=== PATIENT | female | born 1955 ===

== ENCOUNTER 2024-06-04 13:26 | Emergency (ER) | payer MEDICARE, MEDICAID, SELFPAY ==
--- NOTE | ~2024-06-04 | XR_ITS ---
EXAMINATION: XR FOOT 1-2 VIEWS LEFT, XR ANKLE 3 OR MORE VIEWS LEFT HISTORY: fall COMPARISON: There are no prior studies available for comparison. FINDINGS: Six views of the left foot and ankle are submitted. Osseous mineralization is normal. There is no fracture or dislocation. The joint spaces are preserved. There is a moderate plantar calcaneal spur. The soft tissues are unremarkable. XR/XR ankle LT min 3V IMPRESSION: No evidence of fracture of the left foot or ankle. Electronically signed by: Gilson French MD 06/04/2024 03:11 PM [facility]
--- NOTE | ~2024-06-04 | XR_ITS ---
EXAMINATION: XR TIBIA AND FIBULA, RIGHT CLINICAL INFORMATION: fall , pain COMPARISON: None available. TECHNIQUE: AP and lateral views of the right tibia and fibula were obtained. FINDINGS: The bones and soft tissues are normal. No fracture. No osseous lesions. XR/XR tibia fibula RT 2V IMPRESSION: Normal right tibia and fibula. Electronically signed by: Roberto Gandara MD 06/04/2024 03:11 PM [facility]
--- NOTE | ~2024-06-04 | XR_ITS ---
EXAMINATION: XR FOOT 1-2 VIEWS LEFT, XR ANKLE 3 OR MORE VIEWS LEFT HISTORY: fall COMPARISON: There are no prior studies available for comparison. FINDINGS: Six views of the left foot and ankle are submitted. Osseous mineralization is normal. There is no fracture or dislocation. The joint spaces are preserved. There is a moderate plantar calcaneal spur. The soft tissues are unremarkable. XR/XR foot LT 2V IMPRESSION: No evidence of fracture of the left foot or ankle. Electronically signed by: Gilson French MD 06/04/2024 03:11 PM [facility]
--- NOTE | ~2024-06-04 | XR_ITS ---
EXAMINATION: XR TIBIA AND FIBULA, LEFT CLINICAL INFORMATION: Fall, pain COMPARISON: None available. TECHNIQUE: AP and lateral views of the left tibia and fibula were obtained. FINDINGS: The bones and soft tissues are normal. No fracture. No osseous lesions. XR/XR tibia fibula LT 2V IMPRESSION: Normal left tibia and fibula. Electronically signed by: Roberto Gandara MD 06/04/2024 03:10 PM [facility]
--- NOTE | ~2024-06-04 | XR_ITS ---
EXAMINATION: XR FOOT, RIGHT CLINICAL INFORMATION: fall COMPARISON: None available. TECHNIQUE: AP, lateral, and oblique views of the right foot. FINDINGS: No fracture, dislocation, or suspicious bone lesion. No malalignment. Normal plantar arch. Mild dorsal tarsometatarsal spurring. Moderate size plantar and small dorsal calcaneal spurs. No soft tissue abnormality. XR/XR foot RT 2V IMPRESSION: No acute bony abnormalities right foot. Electronically signed by: Roberto Gandara MD 06/04/2024 03:12 PM [facility]
--- NOTE | ~2024-06-04 | XR_ITS ---
EXAMINATION: XR ANKLE, RIGHT CLINICAL INFORMATION: fall COMPARISON: None available. TECHNIQUE: AP, lateral, and mortise views of the right ankle. FINDINGS: No fracture. Alignment is anatomic. No erosions. Mortise is maintained. The talar dome is normal. Subtalar joints appear normal. There are small dorsal and moderate size plantar calcaneal spurs. Soft tissues are normal. XR/XR ankle RT 2V IMPRESSION: Normal right ankle. Electronically signed by: Roberto Gandara MD 06/04/2024 03:09 PM [facility]
[2024-06-04 13:29] VITALS: BP 202/96; PULSE 92; O2SAT 95
[2024-06-04 14:20] VITALS: BP 176/81; PULSE 82; RESP 18; TEMP 36.3; O2SAT 95; BMI 41.0
--- NOTE | 2024-06-04 14:29 | ED_ITS ---
HPI - General Adult General Chief complaint: Fall Stated complaint: escalator fall at mall, no LOC, no HS, GCS 15 History of Present Illness HPI narrative: Patient left before completion of treatment by ED provider Related Data Allergies Allergy/AdvReac Type Severity Reaction Status Date / Time Penicillins Allergy Anaphylaxis Verified 06/04/24 14:27 [facility] Social History Social History Advance Directives: No Advance Directives Information Provided: No Physical Exam ED Vital Signs: Vital Signs - 24 hr 06/04/24 19:49 Temperature 97.3 F Pulse Rate 76 Respiratory Rate 16 Blood Pressure 189/88 H Pulse Oximetry 96 Oxygen Delivery Method Room Air BMI result Body Mass Index 41.0 Course Course Course Narrative: RME: 69 yold male presents to the ED for falling. Patient states she was on an escalator and she slipped in fell onto both lower extremities. Patient denies hitting head or loss of consciousness. Patient denies being on any blood thinners. Discharge Plan Discharge Clinical Impression: Fall Patient Disposition: Left W/O Completing Treatment Discharge Date/Time: 06/04/24 21:51
[2024-06-04 19:49] VITALS: BP 189/88; PULSE 76; RESP 16; TEMP 36.3; O2SAT 96
== END 2024-06-04 21:51 | disposition left against medical advice (07) ==
LOC: HO.ED 21:51
PROVIDERS: Emergency Provider Emergency Medicine
DX: S89.91XA Unspecified injury of right lower leg, initial encounter (principal); S89.92XA Unspecified injury of left lower leg, initial encounter; M79.605 Pain in left leg; M79.604 Pain in right leg; W10.0XXA Fall (on)(from) escalator, initial encounter; Y93.89 Activity, other specified; Y92.89 Other specified places as the place of occurrence of the external cause; Y99.8 Other external cause status
CPT/HCPCS: 73590; 73600; 73610; 73620; 99282; 99283

== ENCOUNTER → 2024-06-04 14:27 | Outpatient (BNV) | payer MEDICARE, MEDICAID, SELFPAY | PROVIDERS: Visit Provider Radiology Diagnostic Radiology | DX: M79.662 Pain in left lower leg (principal); M79.661 Pain in right lower leg; M79.671 Pain in right foot; M79.672 Pain in left foot; M25.572 Pain in left ankle and joints of left foot; M25.571 Pain in right ankle and joints of right foot | CPT/HCPCS: 73590; 73600; 73610; 73620 ==